=== PATIENT | male | born 1985 | race Caucasian/White ===

== ENCOUNTER 2022-01-10 07:02 | Emergency (ER) | payer OTHER, SELFPAY ==
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
[2022-01-10 07:16] VITALS: BP 126/77; PULSE 97; RESP 18; TEMP 37; O2SAT 99
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
--- NOTE | 2022-01-25 10:06 | PC.NURSE ---
LATE ENTRY This note is being entered to document information to the patient's record. The following information was omitted on [01/10/22], by [sejal dumont rn]. Splint applied to left foot/ankle
== END 2022-01-10 10:30 | disposition home or self-care (01) ==
PROVIDERS: Emergency Provider Emergency Medicine; PCP Internal Medicine
DX: S92.325A Nondisplaced fracture of second metatarsal bone, left foot, initial encounter for closed fracture (principal); S92.335A Nondisplaced fracture of third metatarsal bone, left foot, initial encounter for closed fracture; S92.345A Nondisplaced fracture of fourth metatarsal bone, left foot, initial encounter for closed fracture; V86.79XA Person on outside of other special all-terrain or other off-road motor vehicles injured in nontraffic accident, initial encounter
CPT/HCPCS: 29515; 73630; 99284

== ENCOUNTER 2023-04-26 15:40 | Emergency (ER) | payer OTHER, SELFPAY ==
--- NOTE | ~2023-04-26 | US_ITS ---
US soft tissue groin RT 04/26/2023 18:07 Indication: Hernia Procedure: High-resolution Limited ultrasound of the right inguinal region Comparison: No prior studies for comparison. Findings: There is discontinuity of the right groin wall with protrusion of heterogeneous content whi ch is reducible. The neck of the defect is 9 mm. Impression: 1: Discontinuity of right groin wall with heterogeneous content, likely inguinal hernia with bowel. R ecommend confirmation with CT. Reviewed, dictated and finalized at location A. Impression: 1: Discontinuity of right groin wall with heterogeneous content, likely inguina l hernia with bowel. Recommend confirmation with CT.
[2023-04-26 15:40] VITALS: BP 161/90; PULSE 81; RESP 16; TEMP 36.6; O2SAT 100
--- NOTE | 2023-04-26 16:10 | ED.GENADULT ---
HPI - General Adult General Chief complaint: Unspecified <Angle Viramontes October, HI LIFT OPERATOR - Last Filed: 04/26/23 16:17> Stated complaint: hernia? <Angle Viramontes October, HI LIFT OPERATOR - Last Filed: 04/26/23 16:17> Time Seen by Provider: 04/26/23 18:18 <Angle Viramontes October, HI LIFT OPERATOR - Last Filed: 04/26/23 16:17> History of Present Illness HPI narrative: Alvaro Alvarado is a 38 y/o male who presents with reports of stretching on 04/01 and felt pain to his right groin area. He states that about a week or two after he noticed a swelling knot to his groin area. Denies any redness/ pain to area but he does feel some discomfort when palpated. Denies abdominal pain / nausea/vomiting/ fever/chills/ denies testicular pain/ or changes with urination. <Angle Viramontes October, HI LIFT OPERATOR - Last Filed: 04/26/23 16:17> Related Data Home medications: Home Medications Medication Instructions Recorded Confirmed methylprednisolone 4 mg tablets in 4 mg PO ONCE 01/12/22 02/23/22 a dose pack (Medrol (Tigre)) <Angle Viramontes October, - Last Filed: 04/26/23 16:17> Allergies/adverse reactions: Allergies Allergy/AdvReac Type Severity Reaction Status Date / Time No Known Allergies Allergy Unknown Uncoded 04/26/23 15:43 <Angle Viramontes October, - Last Filed: 04/26/23 16:17> Review of Systems Review of Systems: CONSTITUTIONAL: Denies fever, chills, or sweats. CARDIOVASCULAR: Denies chest pain, palpitations, or edema. RESPIRATORY: Denies cough or dyspnea. GASTROINTESTINAL: Intermittent right groin pain denies abdominal pain, nausea, vomiting, or diarrhea. GENITOURINARY: Denies dysuria or hematuria. SKIN: Denies rash or itching. MUSCULOSKELETAL: Denies back pain, joint pain, or myalgia. NEUROLOGIC: Denies headache, numbness, dizziness, or weakness. PSYCHIATRIC: Denies anxiety or depression. <Juan J Singh MD - Last Filed: 04/27/23 14:04> [facility] Social History Social History: Social History Smoking status: Current every day smoker Tobacco type: e-cigarettes/vaping Alcohol intake: current Drinks per week: 10 Substance use: never Living arrangements: with family Gender identity (if verbalized by the patient): Male <Angle AndrewTAE - Last Filed: 04/26/23 16:17> Exam Narrative: GENERAL: Well-developed, well-nourished, and in no acute distress. HEAD: Normocephalic, atraumatic. EYES: PERRLA and EOMI. CHEST: Clear to auscultation. No respiratory distress. No wheezes rales or rhonchi HEART: Regular rate and rhythm. No murmur heard. Normal peripheral pulses. ABDOMEN: Soft, nontender, nondistended, normal active bowel sounds. Normal-appearing bilateral inguinal, with small mass noted on Valsalva that immediately retracts. EXTREMITIES: Normal range of motion. No edema. SKIN: No noted ecchymosis, induration or erythema of the groin. Skin otherwise warm, dry, no rash. NEURO: Alert and oriented x3. Moving all 4 limbs purposefully. PSYCH: Normal mood and affect. <Juan J Singh MD - Last Filed: 04/27/23 14:04> Course Course Emergency Course: 18:25 - I assumed care of this patient after MSE. Ultrasound demonstrates an inguinal hernia with bowel. On examination, the hernia reduces easily and has no changes concerning for strangulation or incarceration. Will discharge with referral to general surgery. Discussed return and emergency precautions including signs/symptoms of hernia strangulation/incarceration. The patient voiced understanding and is comfortable with the plan. All questions answered to his satisfaction <Juan J Singh MD - Last Filed: 04/27/23 14:04> Vital Signs Vital signs: Vital Signs Temperature 97.9 F 04/26/23 15:40 Pulse Rate 81 04/26/23 15:40 Respiratory Rate 16 04/26/23 15:40 Blood Pressure 161/90 H 04/26/23 15:40 Pulse Oximetry 100 04/26/23 15:40 Temperature 97.9 F 04/26/23 19:06 Pulse Rate 77 04/26/23 19:06 Re
[2023-04-26 16:39] LABS: Basophils Absolute Auto 0.1 K/mm3 (0.0-0.1); Basophils Percent Auto 0.6 % (0.2-1.2); Eosinophils Absolute Auto 0.3 K/mm3 (0-0.3); Eosinophils Percent Auto 3.9 % (0-4.4); Hematocrit 42.9 % (42.0-52.0); Immature Granulocyte Absolute 0.04 K/mm3 (0.00-0.031); Immature Granulocyte Percent A 0.5 % (0-0.5); Lymphocytes Absolute Auto 1.85 K/mm3 (0.9-3.2); Lymphocytes Percent Auto 21.3 % (18.3-44.2); Mean Corpuscular HGB Conc 32.6 g/dl (32-36); Mean Corpuscular Hemoglobin 32.9 pg (26-34); Mean Corpuscular Volume 100.9 fl (80-100); Mean Platelet Volume 9.1 fl (7.4-10.4); Monocytes Absolute Auto 0.9 K/mm3 (0.1-0.6); Monocytes Percent Auto 9.8 % (2.6-8.5); Neutrophils Absolute Auto 5.6 K/mm3 (1.3-6.7); Neutrophils Percent Auto 63.9 % (45.5-73.1); Platelet Count Result 282 k/mm3 (150-375); Red Blood Count 4.25 M/mm3 (4.6-6.20); Red Cell Distribution Width 11.7 % (11.5-14.5); White Blood Count 8.7 K/mm3 (4.5-10.0)
[2023-04-26 16:48] LABS: Anion Gap 6 mmol/L (8-16); Blood Urea Nitrogen 7 mg/dL (9-20); Calcium 8.4 mg/dL (8.4-10.2); Carbon Dioxide 28 mmol/L (22-30); Chloride 99 mmol/L (98-107); Estimated CRCL calculation 124 ml/min; Estimated Glomerular Filt Rate > 60; Glucose 119 mg/dL (65-110); Potassium 3.6 mmol/L (3.4-5.0); Sodium 133 mmol/L (137-145)
[2023-04-26 19:06] VITALS: BP 130/88; PULSE 77; RESP 16; TEMP 36.6; O2SAT 100
== END 2023-04-26 19:08 | disposition home or self-care (01) ==
PROVIDERS: Nurse Practitioner Family; Emergency Provider Preventive Medicine Aerospace Medicine
DX: K40.90 Unilateral inguinal hernia, without obstruction or gangrene, not specified as recurrent (principal); F17.290 Nicotine dependence, other tobacco product, uncomplicated
CPT/HCPCS: 36415; 76882; 80048; 85025; 99284

== ENCOUNTER 2023-05-10 02:35 | Day surgery (SDC) | payer OTHER, SELFPAY ==
[2023-05-05 15:42] VITALS: BMI 19.9
--- NOTE | 2023-05-05 16:08 | PC.NURSE ---
Report to the Outpatient Waiting Room, entrance under the green pavilion located off [facility], at 1130 on 05-10-23. Planned Procedure Time: 1330. Time changes happen often and if your time is changed the preop area will call you the afternoon before. - You and your visitor will be asked to self-screen and do not enter if you have any COVID symptoms. - A mask is optional within the hospital at this time. Patients may have clear liquids (water, carbonated beverages, clear teas, apple juice) until 3 hours prior to surgery with a maximum of 20 ounces. 1030 - No food from midnight until time of surgery - Infants may have breast milk until 4 hours before surgery, formula 6 hours prior to surgery. - Children will be allowed to drink immediately following surgery. If applicable, please bring a bottle or sippy cup to assist with drinking. Juice, water, soda, and popsicles are readily available. For infants on formula, please bring formula the day of surgery. Pacifiers are allowed. Take the following medications with a SIP of water the morning of surgery: None DO NOT STOP ANY OF YOUR OTHER PRESCRIPTION MEDICATIONS PRIOR TO SURGERY ?EXCEPT THE FOLLOWING Medications to discontinue per physician: vitamins and supplements Date to take last dose: 05-07-23 Please no make-up, nail stateless, hairspray, perfume, deodorant, or body powder the day of surgery. No jewelry (including any body piercings) or valuables the day of surgery, leave them at home. Please take a shower or bath the night before, or the morning of, surgery with an antibacterial soap. Hibiclens Wear comfortable, loose fitting clothing. Children are encouraged to wear pajamas. - Jewelry must be removed prior to entering the operating room. Rings and piercings that are not removed may be cut off. - The hospital will not accept responsibility for valuables. - Please leave all valuables, including medications, at home the day of surgery. If you are going home after surgery, a licensed truck driver rubbish collector must drive you home. - NO public transportation without another adult if you receive anesthesia. - We recommend that an adult stay with you for 24 hours following discharge. - We also recommend that you do not drive, make important decision, drink alcoholic beverages, or take any drugs that were not prescribed by your health care provider for at least 24 hours after your discharge time. For Pediatric surgeries, we recommend two adults accompany the child home. Follow any additional instructions given to you from your surgeon. If you or anyone in your household have experienced Covid symptoms in the past week, please notify your surgeon or the nurse liaison at the phone number below for possible testing. Telephone instructions given to Ramez Alvarado and asked if any additional questions and then verbalized understanding. Patient advised to call surgeon office or pre surgery nurse liaison [phone] if any additional questions.
[2023-05-10] VITALS (8 sets, daily range): BP systolic 124–154; BP diastolic 68–94; PULSE 72–88; RESP 12–18; TEMP 36.8–37.1; O2SAT 97–100
--- NOTE | 2023-05-10 11:48 | WPDANESEPPF ---
Anes - Initial Pre Proc Eval Procedure: Operation Date: 05/10/23 13:30 Proposed Procedures p Robotic Assisted Right Inguinal Hernia Repair - Sarita Kunz MD Date/Time: 05/10/23 11:48 Surgeon: Sarita Kunz MD Pre Op Diagnosis: right inguinal hernia Patient Data Age: 38 Gender: M Height: 1.75 m Weight: 61.24 kg Allergies Allergy/AdvReac Type Severity Reaction Status Date / Time No Known Allergies Allergy Unknown Uncoded 05/05/23 16:14 Home Medications Medication Instructions Recorded Confirmed Type ascorbic acid (vitamin C) 250 mg 250 mg PO DAILY 05/05/23 05/05/23 History tablet cholecalciferol (vitamin D3) 25 25 mcg PO DAILY 05/05/23 05/05/23 History mcg (1,000 unit) tablet (Vitamin D3) tumeric 100 mg-mk 150 mg-olive 1 cap PO DAILY 05/05/23 05/05/23 History 50 mg-oreg 150 mg-caprylate capsule Patient hx anesthesia problems: none Family hx anesthesia problems: none Results Review: All pre-operative results and documents have been reviewed as part of the pre-operative evaluation. [facility] Social History Social History (Updated 04/30/23 @ 14:06 by Sharri Medeiros MA) Smoking packs per day: 0.5 Smoking cigarettes per day: 10.0 Years smoked: 7 Smoking pack-years: 3.50 Smoking status: Former smoker Tobacco type: cigarettes Second hand tobacco smoke exposure: No Smoking end date: 06/28/15 Alcohol intake: current Drinks per week: 10 Alcohol use details: sometimes Substance use: current Substance use type: marijuana Other substance usage details: sometimes Living arrangements: with family Gender identity (if verbalized by the patient): Male Spiritual care concerns: No Anes - Eval Final PreProcedure Day of Procedure 05/10/23 11:48 Patient weight: normal Heart: regular rate and rhythm Lungs: clear to auscultation Airway: Mallampati scale class II Neurological: alert and oriented Last oral intake: >/= 8 hours ASA classification: II Emergent: no Anesthetic plan: proceed Anesthesia type and monitoring: general ETT and standard monitoring Results Review: All pre-operative results and documents have been reviewed as part of the pre-operative evaluation. Informed Consent: The patient's anesthetic plan and its attendant risks and benefits were discussed with the patient/family/POA. Questions were solicited and answers provided to the satisfaction of the patient/family/POA.
[2023-05-10] MEDS: LACTATED RINGERS 1,000 ML 30 ML IV CONT ×2 (12:10→15:05)
[2023-05-10] MEDS: KETOROLAC 15 MG/ML VIAL (*BKC) IV PUSH (12:15)
--- NOTE | 2023-05-10 13:46 | WPDHPUPDATE1 ---
History and Physical Update Update Date/Time: 05/10/23 13:46 History and Physical has been reviewed, including an updated exam of the patient. There are NO changes in the patient's condition. Risks, benefits, and alternatives have been discussed and questions answered. Patient agrees to proceed with procedure.
[2023-05-10] MEDS: ceFAZolin 2 GM/D5W 50 ML 2 GM/50 ML BAG IVPB (14:29)
[2023-05-10] MEDS: BUPIVACAINE/EPINEPHRINE 0.5% 50 ML VIAL 30 ML INFILTRATE (14:35)
--- NOTE | 2023-05-10 14:57 | P.OP_ITS ---
Procedure Note - Detailed Date of Procedure 05/10/23 Pre-op Diagnosis right inguinal hernia Post-op Diagnosis Same Procedure Performed robotic assisted right inguinal hernia repair with mesh Surgeon Sarita Kunz MD Anesthesia General Indications 38-year-old male with progressively worsening right inguinal hernia over last few wks. Pt had workup c/w [facility]. Findings indirect right inguinal hernia Description of Procedure Patient was brought into the operating room and placed in the supine position. After adequate induction of general anesthesia, the patient was prepped and draped in normal sterile fashion. A time-out was then done to verify the patient's identity, as well as the procedure being performed. Began by making a 8 mm incision in the supraumbilical region, a Veress needle was then placed into the peritoneal cavity. CO2 gas was then insufflated and after adequate pneumoperitoneum was achieved, the Veress needle was removed. I then placed an 8 mm trocar through this incision. I then placed the endoscope through this trocar site and under direct visualization placed 2 further 8 mm ports in the right and left mid abdomen. The [employer]or[employer] robot was then docked to the 3 trocar sites. I then scrubbed out and went to the robotic console. Upon examining the pelvis, it was noted that the patient had a large right inguinal hernia. The left side was examined and no hernia defect was noted. I began by making a preperitoneal flap approximately 6 cm superior to the defect. This flap was carried medially past the umbilical ligaments in laterally to the transversalis. It then began dissection of my medial compartment taking this down to the pubic tubercle. I then began the lateral dissection taking this down to the transversalis fascia. Once these compartments were achieved, I began dissection around the cord structures. A moderate indirect hernia was noted at this point. Using careful dissection, was able to reduce indirect hernia sac off the cord structures. Once this was adequately done, I went ahead and placed a large piece of 3D Max mesh into the abdominal cavity. The mesh was carefully positioned, centering the center of the mesh over the indirect defect. Once this was done, was very satisfied with our repair. Using 3-0 Vicryl sutures, I tacked the mesh medially to Dell's ligament. Two lateral sutures were placed from the mesh to the transversalis fascia. I then closed the peritoneal flap with a running 2.0 V Lock suture. The abdomen was then desufflated, and all ports were removed. All incisions were then closed with the 4.0 monocryl suture. Dermabond was placed on each wound. The patient tolerated the procedure well, was extubated in the operating room postoperatively, and will now be transferred to the recovery room in stable condition. Implants large 3DMax mesh Estimated Blood Loss 10 Drains No Packing No Pathology None sent Complications No immediate complications Condition Stable Disposition PACU [facility] Billing Surgery - Charge Forward: Surgery Billing
--- NOTE | 2023-05-10 15:26 | SUR.PHASEI ---
1525: Simple mask removed.
[2023-05-10] MEDS: fentaNYL CITRATE INJ (*CRX) 100 MCG/2 ML VIAL 25 MCG IV PUSH ×5 (15:56→16:58)
[2023-05-10] MEDS: oxyCODONE HCL (*CRX) 5 MG TAB IR PO (16:07)
== END 2023-05-10 17:17 | disposition home or self-care (01) ==
PROVIDERS: Visit Provider Surgery
PROC: 8E0Y4CZ Robotic Assisted Procedure of Lower Extremity, Percutaneous Endoscopic Approach (ICD-10-PCS; CPT 49650; principal; 2023-05-10 13:30)
DX: K40.90 Unilateral inguinal hernia, without obstruction or gangrene, not specified as recurrent (principal); F12.90 Cannabis use, unspecified, uncomplicated; Z87.891 Personal history of nicotine dependence; Z79.899 Other long term (current) drug therapy
CPT/HCPCS: 49650; S2900; 36415; 86850; 86900; 86901; A9270; C1781; J0690; J1100; J1170; J1885; J2250; J2405; J2704; J3010; J7120